=== PATIENT | female | born 1970 | race Caucasian/White ===

== ENCOUNTER 2021-08-22 18:12 | Inpatient (IN) | payer MEDICARE, MEDICAID ==
[~2021-08-22] VITALS: Ht 172.7 cm; Wt 98.0 kg
[~2021-08-22 18:12] MED LIST: 3-DAY VAGINAL C21 GM VG; BACTRIM DS TAB1 EACH PO; BUSPAR 10MG10 MG PO; CEPHALEXIN500 MG PO; CITALOPRAM HBR40 MG PO; CLONAZEPAM1 MG PO; ELAVIL 25 MG TA25 MG PO; FENOFIBRATE145 MG PO; FORTAMET1000 MG PO; GLIPIZIDE ER5 MG PO; HYDROXYZINE HCL25 MG PO; INVANZ 1 GM VIAL1 GM IV; KEFLEX CAP 500500 MG PO; KEFLEX500 MG PO; LODINE CAP 300300 MG PO; MOBIC15 MG PO; NAPROSYN500 MG PO; NORCO 5-325 TA1 EACH PO; ONDANSETRON ODT4 MG PO; PERCOCET 10-321 EACH PO; PYRIDIUM100 MG PO; PYRIDIUM200 MG PO; SIMVASTATIN20 MG PO; TORADOL 10 MG T10 MG PO; TRAZODONE HCL50 MG PO
[2021-08-22 19:13] LABS: HEMOGLOBIN 15.9 gm/dl (12.3-15.3); RED BLOOD COUNT 5.36 M/UL (4.00-5.10); WHITE BLOOD COUNT 15.1 K/UL (4.5-11.0)
[2021-08-22 20:37] LABS: BUN/CREATININE RATIO 16 (0-10)
[2021-08-23 06:35] LABS: HEMOGLOBIN 14.3 gm/dl (12.3-15.3); RED BLOOD COUNT 5.06 M/UL (4.00-5.10); WHITE BLOOD COUNT 11.6 K/UL (4.5-11.0)
[2021-08-23] MEDS ORDERED: GABAPENTIN600 MG PO (11:36)
[2021-08-23] MEDS ORDERED: PIOGLITAZONE HC30 MG PO (11:39)
[2021-08-23] MEDS ORDERED: ROPINIROLE HCL1 MG PO (11:39)
[2021-08-23] MEDS ORDERED: TRAZODONE HCL50 MG PO (11:40)
[2021-08-24 06:13] LABS: HEMOGLOBIN 14.2 gm/dl (12.3-15.3); RED BLOOD COUNT 4.86 M/UL (4.00-5.10); WHITE BLOOD COUNT 13.4 K/UL (4.5-11.0)
[2021-08-25 06:35] LABS: HEMOGLOBIN 14.9 gm/dl (12.3-15.3); RED BLOOD COUNT 5.14 M/UL (4.00-5.10)
[2021-08-25 06:49] LABS: BUN/CREATININE RATIO 21 (0-10)
[2021-08-25] MEDS ORDERED: CEFUROXIME500 MG PO (09:49)
[2021-08-25] MEDS ORDERED: LANTUS100 UNIT/1 SQ (11:15)
== END 2021-08-25 14:00 | disposition home or self-care (01) | DRG 690 ==
LOC: ER1 18:12 → MED SURG 4 23:31 → CDU 23:31 → M/S 23:31 → MED SURG 4 08-23 06:53
PROVIDERS: Internal Medicine; ADMIT Internal Medicine
DX: N30.00 Acute cystitis without hematuria (principal); N17.9 Acute kidney failure, unspecified; Z20.822 Contact with and (suspected) exposure to COVID-19; N30.10 Interstitial cystitis (chronic) without hematuria; F41.9 Anxiety disorder, unspecified; E11.9 Type 2 diabetes mellitus without complications; F17.210 Nicotine dependence, cigarettes, uncomplicated; M19.90 Unspecified osteoarthritis, unspecified site; Z79.4 Long term (current) use of insulin; Z87.442 Personal history of urinary calculi; Z87.440 Personal history of urinary (tract) infections; Z90.710 Acquired absence of both cervix and uterus; Z90.49 Acquired absence of other specified parts of digestive tract; Z88.6 Allergy status to analgesic agent; Z88.0 Allergy status to penicillin; Z83.79 Family history of other diseases of the digestive system; Z82.49 Family history of ischemic heart disease and other diseases of the circulatory system; Z71.6 Tobacco abuse counseling
CPT/HCPCS: 36415; 80048; 80053; 81001; 82962; 83036; 83690; 85025; 87040; 87086; 96372; 96374; 96375; 96376; 99285; G0378; J0696; J1170; J1650; J1885; J2405